=== PATIENT | female | born 1945 | race Caucasian/White ===

== ENCOUNTER 2019-07-16 13:40 | Outpatient (CLI) | payer MEDICARE, OTHER, SELFPAY ==
--- NOTE | 2019-07-16 06:00 | DI.RAD_ITS ---
EXAM: XR PAIN CLINIC LUMBAR SP 2V CLINICAL HISTORY: Bilat Lumbar Medial Branch Block. TECHNIQUE: 2D and realtime digital imaging was performed. CONTRAST MATERIAL: COMPARISON: No exams were available for comparison FINDINGS: Images submitted from the pain clinic demonstrate needle positioning over the right lateral position at the level of L4 and L5 and 1st right sacral ala, these findings in conjunction with a bilateral chato mbar branch block. IMPRESSION:
[2019-07-16 13:58] VITALS: BP 128/61; PULSE 67; RESP 18; TEMP 36.6; O2SAT 97
--- NOTE | 2019-07-16 14:43 | PDOC.PAIN ---
Pain Clinic Procedure Note Procedure Note Procedure Note: Lumbar/Sacral Medial Branch Blocks LANE DHILLON has been referred to the [facility] for lumbar/sacral medial branch blocks. COMMENTS: Allergy to Iodine, thus no Iodine is being used today. I did review her recent imaging and evaluation with Ms. Benito. Patient was interviewed and the medical record reviewed. There were no medical, pharmacologic, radiographic or other structural contraindications to attempting fluoroscopically guided local anesthetic lumbar/sacral medial branch blocks. Risks and expected side effects as well as potential benefit of the procedure were reviewed and voiced concerns addressed. The printed consent form was signed and witnessed. Standard time-out procedure was performed. Patient was placed in the prone position on the fluoroscopy table and automated blood pressure cuff and pulse oximeter applied. The skin entry points for approaching the anatomic target points of the segmental medial branches of bilateral L3-L5 were identified with anfluoroscopy and marked. Following thorough Chlorhexadine preparation of the skin and draping and 1% lidocaine infiltration of the skin entry points and subcutaneous tissues, a 22 gauge spinal needle was placed under fluoroscopic guidance down on to the target point for each respective segmental medial branch.Position was confirmed in A/P, oblique and lateral views. At this point 0.5ml 0.5% Bupivacaine was injected or 1% Lidocaine. Vital signs were stable throughout the procedure and were as recorded in the docflowsheet by the nursing staff. Follow up plans and appointments were discussed and was instructed to keep careful note of how the usual pain was modified by these injections. Specifically was asked to keep a pain diary for the next 4 hours using a numeric pain scale of 0-10 and report these results at the follow-up visit. Post procedure instruction was given as documented in the nursing documentation and having met discharge criteria. Patient was discharged from the [facility]. Based on the medial branches blocked today, if the patient has adequate relief and we are able to proceed to radiofrequency ablation, the treatment should result in the denervation of the bilateral L4-L5 and L5-S1 FACET JOINTS. We would expect to denervate a total of 4 facets during the radiofrequency ablation. COMMENTS: CC: Coni Terry
[2019-07-16 14:52] VITALS: BP 138/72; PULSE 84; RESP 14; O2SAT 97
[2019-07-16] MEDS: Bupivacaine 0.5% Pres-Free 10 ML VIAL IJ (14:52)
== END 2019-07-16 14:00 ==
PROVIDERS: PCP Internal Medicine; Visit Provider Preventive Medicine Occupational Medicine
DX: M47.817 Spondylosis without myelopathy or radiculopathy, lumbosacral region (principal)
CPT/HCPCS: 64493 ×2; 64494 ×2; 72100

== ENCOUNTER 2019-10-29 11:35 | Outpatient (CLI) | payer MEDICARE, OTHER, SELFPAY ==
[2019-10-29 11:50] VITALS: BP 140/68; PULSE 79; RESP 20; TEMP 36.8; O2SAT 98
--- NOTE | 2019-10-29 12:30 | DI.RAD_ITS ---
EXAM: XR PAIN CLINIC LUMBAR SP 2V CLINICAL HISTORY: Dx: Lumbar Spondylosis TECHNIQUE: C-arm fluoroscopy COMPARISON: No exams were available for comparison FINDINGS: C-arm fluoroscopy was utilized by Dr. Nur during lumbar medial branch block. Hard copies show needles projected adjacent to pedicles bilaterally at what appear to be the L4-L5 and S1 levels. Fluoro keturah e 38 seconds.
--- NOTE | 2019-10-29 12:45 | PDOC.PAIN_ITS ---
Pain Clinic Procedure Note Procedure Note Procedure Note: Lumbar/Sacral Medial Branch Blocks LANE DHILLON has been referred to the [facility] for lumbar/sacral medial branch blocks. Pre-operative diagnosis: lumbar spondylosis Post-operative diagnosis: same as above Patient was interviewed and the medical record reviewed. There were no medical, pharmacologic, radiographic or other structural contraindications to attempting fluoroscopically guided local anesthetic lumbar/sacral medial branch blocks. Risks and expected side effects as well as potential benefit of the procedure were reviewed and voiced concerns addressed. The printed consent form was signed and witnessed. Standard time-out procedure was performed. Patient was placed in the prone position on the fluoroscopy table and automated blood pressure cuff and pulse oximeter applied. The skin entry points for ap proaching the anatomic target points of the segmental medial branches of bilateral L3, L4, L5-DR were identified with anfluoroscopy and marked. Following thorough Chlorhexadine preparation of the skin and draping and 1% lidocaine infiltration of the skin entry points and subcutaneous tissues, a 22 gauge 5'' spinal needle was placed under fluoroscopic guidance down on to the target point for each respective segmental medial branch.Position was confirmed in A/P, oblique and lateral views, omnipaque was not used due to allergy to iodine.. Coult be this method .5ml of 2% Lidocaine was injected at each site. Vital signs were stable throughout the procedure and were as recorded in the docflowsheet by the nursing staff. Follow up plans and appointments were discussed and was instructed to keep careful note of how the usual pain was modified by these injections. Specifically was asked to keep a pain diary for the next 24 hours using a numeric pain scale of 0-10 and report these results at the follow-up visit. Post procedure instruction was given as documented in the nursing documentation and having met discharge criteria. Patient was discharged from the [facility]. Based on the medial branches blocked today, if the patient has adequate relief and we are able to proceed to radiofrequency ablation, the treatment should result in the denervation of the bilateral L4-5, L5-S1 facets. We would expect to denervate a total of 4 facets during the radiofrequency ablation. COMMENTS:at end of procedure, patient voiced that she sustained a mechanical fall about 3 weeks ago where she was pinned at the end of the staircase with wheelchair trapping her leg. she feels her baseline back pain is aggravated with worsening leg soreness. 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 They voiced understanding. I personally performed the entire procedure. Judith Nur MD Pain Management CC: Coni Terry
[2019-10-29 12:51] VITALS: BP 169/90; PULSE 80; RESP 21; O2SAT 96
[2019-10-29] MEDS: Lidocaine 2% Pres-Free 5 ML VIAL IJ (12:55)
== END 2019-10-29 11:55 ==
PROVIDERS: PCP Internal Medicine; Visit Provider Internal Medicine
DX: M47.816 Spondylosis without myelopathy or radiculopathy, lumbar region (principal)
CPT/HCPCS: 64493; 64494; 72100